=== PATIENT | male | born 1970 | race Caucasian/White ===

== ENCOUNTER 2020-03-08 08:39 | Emergency (ER) | payer OTHER ==
[2020-03-08 08:47] VITALS: BP 134/76; PULSE 79; TEMP 98.3; BMI 38.0
[2020-03-08] MEDS ORDERED: IBUPROFEN 400 MG TABLET (FP) PO ONE ×2 (09:37→09:40)
== END 2020-03-08 10:12 | disposition home or self-care (01) ==
LOC: JER 08:39
DX: L40.1 Generalized pustular psoriasis (principal); R73.9 Hyperglycemia, unspecified
CPT/HCPCS: 82962; 99283-25